=== PATIENT | female | born 1945 | race Caucasian/White ===

== ENCOUNTER → 2021-09-07 | Outpatient (REF) | payer MEDICARE, OTHER ==
[~2021-09-07] MED LIST: ADV250INH INH; ALBU83IN INH; AMIT25TA17 PO; AVAP150T31 PO; BISO5TAB14 PO; CARA1TAB6 PO; CELE100C PO; CUTI0.053 EX; FERR325T3 PO; GENT0.2D2 OP; LEVO75TA4 PO; MAGN400T5 PO; MM S100C PO; NEXI40CA PO; PAZE1DRO OP; SING10TA32 PO; ZYRT10CA PO
== END ==
LOC: M SFHCPLAZ 10:20
PROVIDERS: ATTEND Physician Assistant
DX: R53.81 Other malaise (principal)

== ENCOUNTER 2025-07-21 07:21 | Day surgery (SDC) | payer MEDICARE, OTHER ==
[~2025-07-21] VITALS: Ht 157.5 cm; Wt 63.2 kg
[~2025-07-21 07:21] MED LIST changes: -ADV250INH INH; +ADVA1AER9 INH; +ALBU2.5V10 INH; -ALBU83IN INH; -AMIT25TA17 PO; +AMIT25TA19 PO; +MONT-5 PO; +PHENYLEPHRINE 10% OPHTH SOL 5ML OD PRN; -SING10TA32 PO
[2025-07-21] MEDS: TROPICAMIDE 1% OPHTH SOLN 15ML OD SCH (08:59)
[2025-07-21] MEDS: CYCLOPENTOLATE 1% OPHTH SOLN 2 ML BTL OD SCH (08:59)
[2025-07-21] MEDS: PHENYLEPHRINE 2.5% OPHTH SOL 2ML OD SCH (08:59)
[2025-07-21] MEDS: OFLOXACIN 0.3 % (OCUFLOX) OPTH SOL 5ML OD ONE (09:00)
[2025-07-21] MEDS: LIDOCAINE 3.5% 1 ML OPHTH TOPICAL GEL OU ONE (09:00)
[2025-07-21] MEDS: LIDOCAINE 1% SDV 5 ML VIAL As Ordered ONE (09:59)
[2025-07-21] MEDS: CEFUROXIME 1 MG/0.1 ML INTRACAMERAL INJ As Ordered ONE (09:59)
[2025-07-21] MEDS: BSS IRRIG/VANCO(10MG)/TOBRA(5MG)/EPINEPH(1:1000-0.5CC)500ML BAG-ORONLY As Ordered ONE (09:59)
[2025-07-21] MEDS: DUOVISC (0.50 ML VISCOAT/0.85 ML PROVISC) OPHTH KIT As Ordered ONE (10:14)
[2025-07-21] MEDS: CARBACHOL 0.01% OPHTH SOLN 1.5 ML VIAL As Ordered ONE (10:14)
[2025-07-21] MEDS: ONDANSETRON 4MG 2ML VIAL IV PRN (10:30)
[2025-07-21 11:24] VITALS: BP 169/74; TEMP 96.7; O2SAT 98
== END 2025-07-21 11:30 | disposition home or self-care (01) ==
LOC: M SDC 07:21
PROVIDERS: ATTEND Ophthalmology
DX: H40.1111 Primary open-angle glaucoma, right eye, mild stage (principal); H25.11 Age-related nuclear cataract, right eye; I10 Essential (primary) hypertension; E03.9 Hypothyroidism, unspecified; E78.00 Pure hypercholesterolemia, unspecified; K76.0 Fatty (change of) liver, not elsewhere classified; Z79.890 Hormone replacement therapy; Z79.899 Other long term (current) drug therapy; Z88.8 Allergy status to other drugs, medicaments and biological substances; Z90.710 Acquired absence of both cervix and uterus; Z98.42 Cataract extraction status, left eye
CPT/HCPCS: 66991; C1783; J0697; J2405; J3010; V2632